=== PATIENT | male | born 1965 | race Caucasian/White ===

== ENCOUNTER 2024-09-29 11:17 | Observation (INO) ==
[2024-09-29] MEDS: ONDANSETRON INJ 2 MG/ML 2 ML VIAL IV STA (11:46)
[2024-09-29] MEDS: SODIUM CHLORIDE 0.9% 1,000 ML IV ONE (11:46)
[2024-09-29] MEDS: MoRPHine SULFATE 4 MG/ML 1 ML CARP\\VIAL IV STA (11:46)
[2024-09-29 12:05] LABS: Basophils # (auto) 0.03 K/uL (0.00-0.20); Basophils % (auto) 0.2 %; Eosinophils # (auto) 0.01 K/uL (0.00-0.50); Eosinophils % (auto) 0.1 %; Hematocrit (blood only) 39.7 % (42.0-52.0); Hemoglobin 13.1 g/dl (14.0-18.0); Immature Granulocytes # (auto) 0.06 K/uL (0.01-0.20); Immature Granulocytes % (auto) 0.4 %; Lymphocytes # (auto) 1.31 K/uL (1.20-3.40); Lymphocytes % (auto) 8.6 %; Mean Corpuscular Hemoglobin 29.2 pg (25.0-34.0); Mean Corpuscular Volume 88.6 fL (80.0-100.0); Mean Platelet Volume 11.9 fL (9.4-12.4); Monocytes # (auto) 1.01 K/uL (0.11-0.59); Monocytes % (auto) 6.6 %; Neutrophils # (auto) 12.85 K/uL (1.40-6.50); Neutrophils % (auto) 84.1 %; Platelet Count 219 K/uL (130-400); RDW Coefficient of Variation 13.1 % (11.5-14.5); RDW Standard Deviation 42.6 fL (36.4-46.3); Red Blood Count 4.48 M/uL (4.70-6.10); White Blood Count 15.27 K/ul (4.8-10.8)
--- NOTE | 2024-09-29 12:14 | Emergency Department Note ---
Impression & Plan Calculus of right ureter, Hydronephrosis ED Provider Note HISTORY OF PRESENT ILLNESS: Patient is a 59-year-old male presenting with an obstructing right sided kidney stone. Patient had presented to an outside emergency department 3 days ago. He was diagnosed with an obstructing 7 mm right kidney stone. He was discharged with pain and nausea medications and had a follow-up with urology today. At his urology visit, he was complaining of significant worsening pain and having persistent nausea. He was referred to the emergency department for symptomatic management and plan for stent placement with urology. On arrival to the ER, the patient reports that he actually went to the outside ER earlier today for his continued symptoms but was able to get in with urology and went to that visit after his ER visit. He is not currently on any antibiotics. He denies any measured fevers but reports he broke out in sweats and had some chills last night. He reports vomiting earlier today but is currently complaining of nausea. He locates the pain to the right lower quadrant. He denies any history of abdominal surgeries. Denies any dysuria or hematuria. He reports that he had kidney stones that were surgically intervened on on the left side about 15 years ago. ROS: as above PHYSICAL EXAM: Constitutional: Patient appears in no acute distress. HENT: Head: Normocephalic and atraumatic. Eyes: EOMI, PERRL Mouth/Throat: Mucous membranes moist. Neck: Trachea midline. Neck supple. Cardiovascular: RRR, No murmurs, rubs or gallops. Intact distal pulses. Pulmonary/Chest: No respiratory distress. Breath sounds clear and equal bilaterally. No wheezes or rales. Abdominal: Abdomen soft, no rebound or guarding. RLQ TTP Musculoskeletal: No edema, tenderness or deformity noted. Skin: Warm and dry. No rash, erythema, pallor or cyanosis Psychiatric: Appropriate mood and affect for situation. Neurological: Alert and keenly responsive. CN II-XII grossly intact, moving all extremities equally and fully. MDM: - Vitals signs showed hypertension - History obtained via patient. History as above. - Chronic conditions affecting care: HTN; HLD - Differential diagnoses include, but are not limited to: UTI; pyelonephritis; hydronephrosis; ureteral stone; appendicitis - Order placed for continuous cardiac monitoring. At this time, monitor showed rate of 50 bpm with normal sinus rhythm, per my interpretation. - External medical records reviewed. Urology visit note from today was reviewed. Based on their note, the CT abdomen/pelvis obtained at the outside ER on 09/27 showed a "moderate right-sided hydroureter ureter nephrosis secondary to an obstructing 7 Zelaya right ureteral calculus." - Laboratory workup interpreted by myself showed leukocytosis (WBC 15.27) with neutrophil predominance; elevated creatinine (Cr 2.06); normal AST/ALT; normal lipase - Patient given 1L NS, 4 mg IV morphine and 4 mg IV zofran for symptomatic management. Given 2g IV rocephin empirically for treatment before surgery. - Discussed case with urologist SEGUNDO on-call, Raquel, at 11:45 am. She is working with Dr. Boothe. He plans to come and evaluate the patient. Patient's last p.o. intake was a sip of water at 6:30 AM. Otherwise he is NPO. Reports that given his n.p.o. status, they will work on putting the patient on the OR schedule and placing a stent later today. She requested that medicine be consulted for admission postoperatively. - Discussion was had with wrapper caser about patient's case and need for admission - Hospitalist consulted for admission - [facility] ASSESSMENT AND PLAN: Diagnosis: Obstructing right ureteral stone; hydronephrosis Plan: Admit Past Med/Surg History Problem List (Updated 09/29/24 @ 12:19 by Vidhya Ewing MD) Hydronephrosis (Acute) Calculus of right ureter (Acute) Calculus of proximal right ureter Medical History Gout Hypertension Surgical History H/O lithotripsy Social History Smoking Status: Never smoker Feels Safe at Home: Yes Allergies Allergies Allergy/AdvReac Type Severity Reaction Status Date / Time No Known Allergies Allergy Verified 09/29/24 10:26 Home Meds Home Medications Medication Instructions Recorded Confirmed atenolol 25 mg tablet 25 mg PO DAILY 09/29/24 09/29/24 losartan 25 mg tablet 25 mg PO DAILY 09/29/24 09/29/24 simvastatin 5 mg tablet 5 mg PO DAILY 09/29/24 09/29/24 tamsulosin 0.4 mg capsule (Flomax) 0.4 mg PO DAILY 09/29/24 09/29/24 Results & Data (ED) Vital Signs Vital Signs - 24 hr 09/29/24 11:31 09/29/24 11:53 09/29/24 12:31 Temperature 36.4 C L Temperature Source Oral Pulse Rate 56 L 48 L Pulse Rate [Right Finger] 49 L Pulse Rhythm [Right Finger] Regular Pulse Strength [Right Finger] Normal Respiratory Rate 16 16 Respiratory Effort / Characteristics Non-Labored Spontaneous Non-Labored Spontaneous Respiratory Depth Normal Normal Respiratory Pattern Regular Blood Pressure 137/75 Blood Pressure [Right Arm] 138/76 Blood Pressure Mean 95 Blood Pressure Mean [Right Arm] 96 Blood Pressure Position [Right Arm] Lying Pulse Oximetry 100 98 Oxygen Delivery Method Room Air Room Air Sepsis Recent Fever Within 48 Hours No Sepsis New/Unexplained Change in Mental Status No Sepsis Action Taken by Nursing No Action Required Laboratory Data 09/29/24 11:40 09/29/24 11:40 Lab Results 09/29/24 Range/Units 11:40 WBC 15.27 H (4.8-10.8) K/ul RBC 4.48 L (4.70-6.10) M/uL Hgb 13.1 L (14.0-18.0) g/dl Hct 39.7 L (42.0-52.0) % MCV 88.6 (80.0-100.0) fL MCH 29.2 (25.0-34.0) pg MCHC 33.0 (32.0-36.0) g/dL RDW Std Deviation 42.6 (36.4-46.3) fL RDW Coeff of Damaso 13.1 (11.5-14.5) % Plt Count 219 (130-400) K/uL MPV 11.9 (9.4-12.4) fL Immature Gran % (Auto) 0.4 % Neut % (Auto) 84.1 % Lymph % (Auto) 8.6 % Davis % (Auto) 6.6 % Eos % (Auto) 0.1 % Baso % (Auto) 0.2 % Neut # (Auto) 12.85 H (1.40-6.50) K/uL Lymph # (Auto) 1.31 (1.20-3.40) K/uL Davis # (Auto) 1.01 H (0.11-0.59) K/uL Eos # (Auto) 0.01 (0.00-0.50) K/uL Baso # (Auto) 0.03 (0.00-0.20) K/uL Immature Gran # (Auto) 0.06 (0.01-0.20) K/uL Sodium 138 (136-145) mmol/L Potassium 4.3 (3.5-5.1) mmol/L Chloride 105 (98-107) mmol/L Carbon Dioxide 26 (21-32) mmol/L Anion Gap 7 (3-11) BUN 31 H (6-23) mg/dl Creatinine 2.06 H (0.6-1.4) mg/dl Est Cr Clr Drug Dosing 47.2 ml/min eGFR 36.20 BUN/Creatinine Ratio 15.0 (10-20) Glucose 133 H (70-99(Fasting)) mg/dl Calcium 9.5 (8.6-10.3) mg/dl Total Bilirubin 0.7 (0.2-1.0) mg/dl AST 16 (13-39) U/L ALT 17 (7-52) U/L Alkaline Phosphatase 56 (34-104) U/L Total Protein 7.4 (6.0-8.3) gm/dl Albumin 4.1 (3.4-5.0) gm/dl Globulin 3.3 (2.5-4.0) gm/dl Albumin/Globulin Ratio 1.2 (0.9-2) Lipase 13 (11-82) U/L Administered Medications Sodium Chloride (Nss) 1,000 mls @ 999 mls/hr IV .Q1H1M ONE Stop: 09/29/24 12:39 Last Admin: 09/29/24 11:46 Dose: 999 mls/hr Documented By: FREDI Discontinued Medications Morphine Sulfate (Morphine Sulfate 4 Mg/Ml 1 Ml Carp\\Vial) 4 mg IV NOW STA Stop: 09/29/24 11:40 Last Admin: 09/29/24 11:46 Dose: 4 mg Documented By: FREDI Ondansetron HCl (Ondansetron Inj 2 Mg/Ml 2 Ml Vial) 4 mg IV NOW STA Stop: 09/29/24 11:40 Last Admin: 09/29/24 11:46 Dose: 4 mg Documented By: FREDI Discharge Plan Visit Data Chief Complaint: Referred by Doctor Stated Complaint: KIDNEY STONE,DOC REF ED Provider: Vidhya Ewing Discharge Problem: Calculus of right ureter, Hydronephrosis Condition: Fair Forms Stand Alone Forms: My [facility] Prescriptions Prescriptions: No Action atenolol 25 mg tablet 25 mg PO DAILY losartan 25 mg tablet 25 mg PO DAILY simvastatin 5 mg tablet 5 mg PO DAILY tamsulosin [Flomax] 0.4 mg capsule 0.4 mg PO DAILY Referrals Referrals: Tanya Becerril DO [Primary Care Provider] -
[2024-09-29 12:24] LABS: Albumin Globulin Ratio 1.2 (0.9-2); Bilirubin,Total 0.7 mg/dl (0.2-1.0); Calcium 9.5 mg/dl (8.6-10.3); Creatinine Clr Calc Pharmacy 47.2 ml/min; Globulin 3.3 gm/dl (2.5-4.0); Potassium 4.3 mmol/L (3.5-5.1); Total Protein 7.4 gm/dl (6.0-8.3)
[2024-09-29] MEDS ORDERED: ONDANSETRON INJ 2 MG/ML 2 ML VIAL IV PRN (12:45)
[2024-09-29] MEDS ORDERED: PROCHLORPERAZINE 5 MG in SYRINGE 4 ML IV PRN (12:45)
[2024-09-29] MEDS ORDERED: MoRPHine SULFATE 2 MG/ML CARP IV PRN (12:45)
[2024-09-29] MEDS ORDERED: MoRPHine SULFATE 4 MG/ML 1 ML CARP\\VIAL IV PRN (12:45)
[2024-09-29] MEDS: cefTRIAXone SODIUM 2,000 MG/50 ML BAG IV STA (12:47)
--- NOTE | 2024-09-29 12:58 | History & Physical Report ---
Date of Service September 29, 2024 Assessment & Plan (1) Calculus of right ureter: (2) Hydronephrosis: Plan This is a 59 year old gentleman with past medical history of hypertension and hyperlipidemia who presented to the ED on 09/29/24 after referred by urology. While in the emergency department he was found to have leukocytosis with a WBC of 15.27. His creatinine was elevated at 2.06 and BUN elevated at 31. No imaging obtained. Urine culture is pending. He was given morphine, Rocephin, Zofran. Upon my encounter his pain was starting to return. #Calculus of proximal right ureter CTAP 09/27moderate right-sided hydroureteronephrosis secondary to obstructing 7 mm right ureteral calculus CBC with leukocytosis of 15.27, hemoglobin stable at 13.1. BMP with elevated creatinine 2.06/BUN 31secondary to obstructing stone S/p IV morphine, Zofran, Rocephin in ED Continue IV morphine for pain medication Zofran first-line, Compazine second line for antiemetics IV fluids at 125 mL/h Urology consulteddiscussed at bedside that he will go for cystoscopy later today Remain NPO until after procedure. Urine sample pending AM CBC, BMP #Hypertension Continue atenolol Hold losartan in setting of NORA #Hyperlipidemia Continue simvastatin DVT prophylaxis: SCDs, encourage ambulation Code: Full Case discussed with Dr. Pascual at time of admission History of Present Illness Primary Care Provider: Tanya Becerril This is a 59 year old gentleman with past medical history of hypertension and hyperlipidemia who presented to the ED on 09/29/24 after referred by urology. Mina was seen and examined w/ his at bedside. Mina went to [facility] ER on 09/27 and was found to have Is obstructing 7 mm right proximal ureteral stone. He was discharged home with antiemetics and pain medication however his symptoms are uncontrolled. He then reported to the ED earlier this morning at [facility] with similar recommendations. He was evaluated in our urology office following this. At that time it was recommended that he report to the ER given that his symptoms are uncontrolled for a cystoscopy. Work reports that he has been having ongoing right flank/right lower quadrant abdominal pain since this started on 09/27. He states that he was given Percocet to use at home however every single time he took this he then vomited shortly after. He is unsure whether the Percocet was even helping. He also reports that the antiemetics were not effective in controlling his symptoms. He reports a decreased appetit e. Denies any chest pain, shortness of breath, lower extremity edema. He states he has been able to make urine and denies any urgency/burning. Denies any changes in bowel habits. While in the emergency department he was found to have leukocytosis with a WBC of 15.27. His creatinine was elevated at 2.06 and BUN elevated at 31. No imaging obtained. Urine culture is pending. He was given morphine, Rocephin, Zofran. Upon my encounter his pain was starting to return. Code discussion to take place and he did confirm he is a full code Allergies Allergy/AdvReac Type Severity Reaction Status Date / Time No Known Allergies Allergy Verified 09/29/24 10:26 Home Medications Medication Instructions Recorded Confirmed Type atenolol 25 mg tablet 25 mg PO DAILY 09/29/24 09/29/24 History etodolac 200 mg capsule 200 mg PO Q6H 09/29/24 09/29/24 History losartan 100 1 tab PO DAILY 09/29/24 09/29/24 History mg-hydrochlorothiazide 25 mg tablet ondansetron 4 mg disintegrating 4 mg PO TID PRN Nausea And Vomiting 09/29/24 09/29/24 History tablet simvastatin 5 mg tablet 5 mg PO DAILY 09/29/24 09/29/24 History tamsulosin 0.4 mg capsule (Flomax) 0.4 mg PO DAILY 09/29/24 09/29/24 History Past Med/Surg History Problem List (Updated 09/29/24 @ 13:32 by Aaron Mcgee MD) Encounter for pre-operative examination Renal colic Calculus of right ureter (Acute) Calculus of proximal right ureter Medical History (Updated 09/29/24 @ 13:32 by Aaron Mcgee MD) Acute kidney injury Hydronephrosis Gout Hypertension Surgical History H/O lithotripsy Social History Smoking Status: Never smoker Hx Alcohol Use: Yes Alcohol type: beer Hx Substance Use: No Communication Ability: Effective Current Living Situation: Spouse Feels Safe at Home: Yes Assistive Devices: Glasses and Hospital Bed Physical Exam Physical Exam: General: no acute distress; non-toxic appearing; well-nourished; cooperative HEENT: normocephalic, atraumatic; no scleral icterus; PERRLA w/ EOMs intact; vision and hearing grossly intact Neck: trachea midline Skin: warm, dry without signs of tenting; no cyanosis; no rashes, bruising, lesions, or erythema noted CV: RRR; S1/S2 normal; no murmurs/rubs/gallops Lungs: no acute respiratory distress; symmetrical chest wall expansion; clear breath sounds across all lung quintero w/o adventitious sounds; no wheezing ABD: Soft, NTP; BS present;+RLQ tenderness; no distention MSK: no tics or fasciculations; no edema noted in the LEs b/l, nonerythematous Neuro: A&Ox3; normal mood and affect; fluent speech; no focal deficits; sensation grossly intact in the LEs b/l Results & Data Results & Data Vital Signs (Past 12 Hours) Vital Signs Temp Pulse Pulse Resp BP BP Pulse Ox 09/29/24 12:31 48 L 09/29/24 11:53 49 L 16 138/76 98 09/29/24 11:31 36.4 C L 56 L 16 137/75 100 O2 Del Method 09/29/24 12:31 09/29/24 11:53 Room Air 09/29/24 11:31 Room Air Supervising Physician Co-Signing Physician Notes I personally saw and examined the patient. I independently reviewed the labs, EKG, imaging, problem list, medication list, past medical history and family history. I verified all arellano points and agree with Rebeca Lazo PA-C with the following exceptions and/or additions: 59 year old male presents to the ER with known ureterolithiasis and uncontrolled pain O/E HS RRR, no murmurs, Chest CTAB, Abdo SNT, no CVA tenderness A/P Ureterolithiasis - doing well s/p ureteral stent, monitor overnight and repeat labs in AM, likely discharge tomorrow and follow up with urology as outpatient Elevated Cr - patient thinks this maybe chronic therefore do not expect to significantly improve overnight PG Care Time/CCT Total # of Minutes Spent Total Time Spent with Patient: Total time spent is greater than 50% in coordination of care (as documented) at patient's floor/unit and/or counseling patient: Coding Level of Care Code 67232 INT INP/OBS CARE 3/75MIN Diagnoses Calculus of right ureter N20.1 Hydronephrosis N13.30
--- NOTE | 2024-09-29 13:04 | Urology Consultation ---
Date of Consultation September 29, 2024 Assessment & Plan (1) Calculus of right ureter: (2) Hydronephrosis: (3) Renal colic: Plan 59yo male admitted with intractable pain secondary to an obstructing 7 mm right ureteral stone We discussed acute stone management with cystoscopy and stent placement. Ureteral stents were discussed as well as postoperative issues and pain management. He is aware a second procedure will be needed for stone treatment. Risks and benefits were discussed. All questions were answered. Will proceed to OR today for cystoscopy, right retrograde pyelogram, right ureteral stent placement. Risks and benefits to be reviewed with patient by Dr. Boothe. Keep NPO. Patient received IV Rocephin in the ED. Urology will follow. Supervising Physician Co-Signing Physician Notes Will plan for cystoscopy, right retrograde pyelogram and right ureteral stent placement due to intractable pain and right obstructing ureteral calculus. History of Present Illness History of Present Illness 59 year old male who presented to the ED today with an obstructing right ureteral stone. Patient was initially evaluated at [facility] ED on 09/27 for acute right flank pain and was diagnosed with an obstructing 7 mm right proximal ureteral stone. CTAP demonstrated moderate right sided hydroureteronephrosis secondary to an obstructing 7 mm right ureteral calculus. He was discharged with pain and nausea medication. Pt returned to [facility] ED this morning 09/29 for ongoing pain, nausea and vomiting. He was treated with pain and nausea medication and discharged for follow-up with urology. Was then seen in the urology clinic this morning and continued to have significant discomfort and ongoing nausea/vomiting despite medications and was directed to the ED at that time. On arrival to the ED today, he was afebrile and hemodynamically stable. Labs show a leukocytosis of 15 and creatinine of 2.06. ED course: IV fluids, Zofran, morphine, fentanyl, Rocephin Pt seen at bedside in the ED. He is awake and resting in bed on arrival. No acute distress. at bedside. Has been NPO. Allergies Allergy/AdvReac Type Severity Reaction Status Date / Time No Known Allergies Allergy Verified 09/29/24 10:26 Home Medications Medication Instructions Recorded Confirmed Type atenolol 25 mg tablet 25 mg PO DAILY 09/29/24 09/29/24 History etodolac 200 mg capsule 200 mg PO Q6H 09/29/24 09/29/24 History losartan 100 1 tab PO DAILY 09/29/24 09/29/24 History mg-hydrochlorothiazide 25 mg tablet ondansetron 4 mg disintegrating 4 mg PO TID PRN Nausea And Vomiting 09/29/24 09/29/24 History tablet simvastatin 5 mg tablet 5 mg PO DAILY 09/29/24 09/29/24 History tamsulosin 0.4 mg capsule (Flomax) 0.4 mg PO DAILY 09/29/24 09/29/24 History Patient History Medical History (Updated 09/29/24 @ 13:32 by Aaron Mcgee MD) Acute kidney injury Hydronephrosis Gout Hypertension Surgical History H/O lithotripsy Social History Smoking Status: Never smoker Feels Safe at Home: Yes Review of Systems Review of Systems: All systems reviewed & are unremarkable except as noted in HPI & below Physical Exam Constitutional: no acute distress Respiratory: no respiratory distress and no labored breathing Musculoskeletal: Head/Neck/Chest: normocephalic Skin: No visible rashes or lesions to exposed skin areas Neurologic: moves all extremities and awake Psychiatric: A+Ox3, euthymic affect Results & Data Vital Signs (Past 12 Hours) Vital Signs Temp Pulse Pulse Resp BP BP Pulse Ox 09/29/24 12:31 48 L 09/29/24 11:53 49 L 16 138/76 98 09/29/24 11:31 36.4 C L 56 L 16 137/75 100 O2 Del Method 09/29/24 12:31 09/29/24 11:53 Room Air 09/29/24 11:31 Room Air PG Care Time/CCT Total # of Minutes Spent Total Time Spent with Patient: Total time spent is greater than 50% in coordination of care (as documented) at patient's floor/unit and/or counseling patient: Coding Level of Care Code 93602 IN/OBS CONSULT LVL 4,60M Diagnoses Calculus of right ureter N20.1 Hydronephrosis N13.30 Renal colic N23
[2024-09-29] MEDS: fentaNYL citrate PF 100 MCG/2 ML VIAL IV STA (13:28)
--- NOTE | 2024-09-29 13:33 | Anesthesiology Consultation ---
Date of Service September 29, 2024 Assessment & Plan (1) Encounter for pre-operative examination: Chart Review Chart Review: Acceptable Risk for Surgery History Surgery Operation Date: 09/29/24 12:25 Proposed Procedures p Cystoscopy, Right Retrograde Pyelogram, Right Stent Placement - Dani Boothe MD Height/Weight Height: 5 ft 10 in Weight: 109.1 kg Allergies Allergy/AdvReac Type Severity Reaction Status Date / Time No Known Allergies Allergy Verified 09/29/24 10:26 Medications Home Medications Medication Instructions Recorded Confirmed Last Taken atenolol 25 mg tablet 25 mg PO DAILY 09/29/24 09/29/24 Unknown etodolac 200 mg capsule 200 mg PO Q6H 09/29/24 09/29/24 Unknown losartan 100 1 tab PO DAILY 09/29/24 09/29/24 Unknown mg-hydrochlorothiazide 25 mg tablet ondansetron 4 mg disintegrating 4 mg PO TID PRN Nausea And Vomiting 09/29/24 09/29/24 Unknown tablet simvastatin 5 mg tablet 5 mg PO DAILY 09/29/24 09/29/24 Unknown tamsulosin 0.4 mg capsule (Flomax) 0.4 mg PO DAILY 09/29/24 09/29/24 Unknown Past Medical History Medical History (Updated 09/29/24 @ 13:32 by Aaron Mcgee MD) Acute kidney injury Hydronephrosis Gout Hypertension Past Surgical History Surgical History H/O lithotripsy Social History Smoking Status: Never smoker Physical Exam Vital Signs Last Vital Signs Temp 36.4 C L 09/29/24 11:31 Pulse 48 L 09/29/24 12:31 Resp 16 09/29/24 11:53 BP 138/76 09/29/24 11:53 Pulse Ox 98 09/29/24 11:53 O2 Del Method Room Air 09/29/24 11:53 Testing Laboratory Results 09/29/24 11:40 09/29/24 11:40
[2024-09-29] MEDS ORDERED: ONDANSETRON INJ 2 MG/ML 2 ML VIAL ONE (13:47)
[2024-09-29] MEDS ORDERED: MIDAZOLAM HCL 1 MG/ML 2ML VIAL ONE (13:47)
[2024-09-29] MEDS ORDERED: DEXAMETHASONE SOD INJ 4 MG/ML VIAL ONE (13:47)
[2024-09-29] MEDS ORDERED: LIDOCAINE 2% 2 ML VIAL/AMP(20MG/ML) INFIL ONE (13:47)
[2024-09-29] MEDS ORDERED: fentaNYL citrate PF 100 MCG/2 ML VIAL ONE (13:47)
[2024-09-29] MEDS ORDERED: PROPOFOL IV EMULSION 10 MG/ML 20 ML VIAL IV ONE ×2 (13:47→13:53)
[2024-09-29] MEDS ORDERED: GLYCOPYRROLATE 0.2 MG/ML VIAL ONE (13:49)
[2024-09-29] MEDS: LACTATED RINGER'S 1,000 ML IV SCH (14:03)
[2024-09-29] MEDS ORDERED: PROMETHAZINE HCL 6.25 MG in SODIUM CHLORIDE 0.9% 50 ML IV PRN (14:18)
[2024-09-29] MEDS ORDERED: ATROPINE SULFATE 0.1 MG/ML 10ML SYR IV PRN (14:18)
[2024-09-29] MEDS ORDERED: fentaNYL citrate PF 100 MCG/2 ML VIAL IV PRN (14:18)
[2024-09-29] MEDS ORDERED: KETAMINE HCL 10MG/ML SYR ONE (14:29)
[2024-09-29] MEDS: DIATRIZOATE MEGLUMINE 30% 100ML VIAL INSTIL PRN (14:44)
--- NOTE | 2024-09-29 14:48 | Operative Report ---
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 Stent in appropriate position at renal pelvis. Specimens None Drains 6 Bahamian by 26 cm right ureteral stent Anesthesia Type MAC Complications none Indications 59-year-old male with a right proximal obstructing ureteral calculus and intractable pain. Description of Procedure After informed consent was obtained, the patient was transported operative suite. MAC anesthesia was induced. The patient was placed in dorsolithotomy position prepped and draped in a sterile fashion. They received preoperative Ancef for antibiotic prophylaxis. An appropriate surgical timeout was performed. A 22 Bahamian rigid scope was inserted per urethra into the bladder. Freedman cystoscopy revealed no stones or lesions. I turned my attention the right ureteral orifice and intubated this with a 5 Bahamian open-ended catheter. A right retrograde pyelogram was shot which showed mild hydronephrosis and a bifid system. A sensor wire was advanced into the kidney and confirmed fluoroscopically. A 6 Bahamian by 26 cm right ureteral stent was deployed with a good proximal coil in the renal pelvis just below the bifid system and a good distal coil noted in the bladder, confirmed fluoroscopically and under direct visualization, respectively. The bladder was emptied and the scope was removed. This concluded the end of the case. All counts were correct at the end of the case. I was present, scrubbed, and actively participated for the entirety of the procedure. I attest to the content of the Intraoperative Record and any orders documented therein. Any exceptions are noted below.
--- NOTE | 2024-09-29 14:58 | Fluoroscopy Report ---
FL retrograde includes kub CLINICAL HISTORY: CYSTO COMPARISON STUDY: None FLUOROSCOPY TIME: 12 seconds FLUOROSCOPY IMAGES: 2 EXPOSURE DOSE: 6 mGy FINDINGS: Fluoroscopy was provided for urologic procedure. IMPRESSION: Intraoperative fluoroscopy. ACT 112: Negative or not required by law. Electronically signed by: Juancho Salazar M.D. 09/29/2024 2:57 PM
--- NOTE | 2024-09-29 15:24 | Anesthesiology Progress Note ---
Date of Service September 29, 2024 Anesthesia Post Procedure Vital Signs Vital Signs: Temp Pulse Pulse Pulse Resp BP BP 09/29/24 15:20 59 L 12 114/69 09/29/24 15:10 36.2 C L 60 19 115/70 09/29/24 15:00 60 13 110/72 09/29/24 14:51 36.1 C L 68 14 119/70 09/29/24 13:58 37.1 C 56 L 20 09/29/24 13:30 59 L 16 09/29/24 12:31 48 L 09/29/24 11:53 49 L 16 09/29/24 11:31 36.4 C L 56 L 16 137/75 BP Pulse Ox O2 Del Method O2 Flow Rate 09/29/24 15:20 95 Room Air 09/29/24 15:10 95 Room Air 09/29/24 15:00 99 Oxymask 3 09/29/24 14:51 99 Oxymask 10 09/29/24 13:58 120/66 99 Room Air 09/29/24 13:30 127/70 98 Room Air 09/29/24 12:31 09/29/24 11:53 138/76 98 Room Air 09/29/24 11:31 100 Room Air Pain Intensity Abdomen: Pain Intensity: 7 Transfer of Care Handoff Completed per policy Notes Mental Status: alert / awake / arousable Patient Amnestic to Procedure: Yes Nausea / Vomiting: adequately controlled Pain: adequately controlled Airway Patency, RR, SpO2: stable & adequate BP & HR: stable & adequate Hydration State: stable & adequate Anesthetic Complications: no major complications apparent
[2024-09-29] MEDS: SODIUM CHLORIDE 0.9% 1,000 ML IV SCH (16:34)
[2024-09-29] MEDS: TAMSULOSIN HCL 0.4 MG CAP PO SCH (20:35)
[2024-09-29] MEDS ORDERED: TAMSULOSIN HCL 0.4 MG CAP PO SCH (21:00)
[2024-09-30 07:15] VITALS: RESP 16; TEMP 97.5
[2024-09-30 07:57] LABS: Hematocrit (blood only) 34.8 % (42.0-52.0); Hemoglobin 11.6 g/dl (14.0-18.0); Mean Corpuscular Hemoglobin 29.8 pg (25.0-34.0); Mean Corpuscular Hgb Conc 33.3 g/dL (32.0-36.0); Mean Corpuscular Volume 89.5 fL (80.0-100.0); Mean Platelet Volume 12.7 fL (9.4-12.4); Platelet Count 181 K/uL (130-400); RDW Coefficient of Variation 13.1 % (11.5-14.5); RDW Standard Deviation 42.8 fL (36.4-46.3); Red Blood Count 3.89 M/uL (4.70-6.10); White Blood Count 10.65 K/ul (4.8-10.8)
[2024-09-30 08:32] LABS: Calcium 8.9 mg/dl (8.6-10.3); Potassium 4.4 mmol/L (3.5-5.1)
[2024-09-30 08:37] VITALS: O2SAT 96
[2024-09-30] MEDS: SIMVASTATIN 5 MG TAB PO SCH (08:37)
[2024-09-30 08:38] LABS: BUN Creatinine Ratio 16.3 (10-20); Creatinine Clr Calc Pharmacy 61.5 ml/min
--- NOTE | 2024-09-30 09:57 | Discharge Summary ---
Discharge Summary Date of Service September 30, 2024 Principal Dx & Hospital Course #1 = Principal Diagnosis (1) Calculus of right ureter: (2) Hydronephrosis: Plan This is a 59 year old gentleman with past medical history of hypertension and hyperlipidemia who presented to the ED on 09/29/24 after referred by urology. #Calculus of proximal right ureter CTAP 09/27moderate right-sided hydroureteronephrosis secondary to obstructing 7 mm right ureteral calculus leukocytosis resolved. Creatinine downtrending to 1.60. s/p cystoscopy 09/29 w/ stent placement. No urine sample collected --> s/p 1 dose Rocephin. dc home on Keflex TID for additional 5 days for prophylaxis treatment. Discussed w/ urology. Continue Flomax Was not requiring narcotics requiring stent placement --> recommend tylenol prn for pain @ home. #Hypertension Continue atenolol resume Losartan on discharge. #Hyperlipidemia Continue simvastatin Admission HPI Per Admitting Provider This is a 59 year old gentleman with past medical history of hypertension and hyperlipidemia who presented to the ED on 09/29/24 after referred by urology. Mina was seen and examined w/ his at bedside. Mina went to [facility] ER on 09/27 and was found to have Is obstructing 7 mm right proximal ureteral stone. He was discharged home with antiemetics and pain medication however his symptoms are uncontrolled. He then reported to the ED earlier this morning at [facility] with similar recommendations. He was evaluated in our urology office following this. At that time it was recommended that he report to the ER given that his symptoms are uncontrolled for a cystoscopy. Work reports that he has been having ongoing right flank/right lower quadrant abdominal pain since this started on 09/27. He states that he was given Percocet to use at home however every single time he took this he then vomited shortly after. He is unsure whether the Percocet was even helping. He also reports that the antiemetics were not effective in controlling his symptoms. He reports a decreased appetite. Denies any chest pain, shortness of breath, lower extremity edema. He states he has been able to make urine and denies any urgency/burning. Denies any changes in bowel habits. While in the emergency department he was found to have leukocytosis with a WBC of 15.27. His creatinine was elevated at 2.06 and BUN elevated at 31. No imaging obtained. Urine culture is pending. He was given morphine, Rocephin, Zofran. Upon my encounter his pain was starting to return. Code discussion to take place and he did confirm he is a full code Discharge Exam General: no acute distress; non-toxic appearing; well-nourished; cooperative HEENT: normocephalic, atraumatic; no scleral icterus; PERRLA w/ EOMs intact; vision and hearing grossly intact Neck trachea midline Skin: warm, dry without signs of tenting; no cyanosis; no rashes, bruising, lesions, or erythema noted Lungs: no acute respiratory distress; symmetrical chest wall expansion MSK: no edema noted in the LEs b/l, nonerythematous Neuro: A&Ox3; normal mood and affect; fluent speech; no focal deficits Discharge Plan Discharge Items Patient Disposition: Home - Self-Care Reason For Visit: KIDNEY STONE Discharge Diagnosis: renal calculus Condition on Discharge: Fair Activity: Resume your previous activity Non-emergency contact: Primary Care Provider and Urologist Call non-emergency contact if: you have any medication questions, your symptoms worsen and you have a fever Follow-up/Referrals: Rupinder Coleman CRNP [Nurse Practitioner] - 10/11/24 10:00 am Tanya Becerril DO [Primary Care Provider] - 10/06/24 10:00 am Diet: Regular Addtl Attending Provider Instructions: Mr. Martínez, Rudolph were recently hospitalized for a kidney stone and underwent a cystoscopy with Dr. Boothe on 09/29/2024 for a stent placement. You were also given antibiotics as well. Please see recommendations below regarding your discharge. Please take Keflex three times daily for the next 5 days. Please take this with food to avoid GI upset. Urology will be in contact to schedule further appointments for you. The remainder of your medications may be resumed. Please follow up with your PCP within 1-2 weeks of discharge. Best of luck! Rebeca Lazo PA-C Pending Studies at Discharge: No Stand-Alone Forms: My [employer], Smoking Cessation Medications and DC Order Prescriptions: New cephalexin 500 mg capsule 500 mg PO TID 5 Days Qty: 15 0RF Continued atenolol 25 mg tablet 25 mg PO DAILY simvastatin 5 mg tablet 5 mg PO DAILY Rx Instructions: Pt states taking, but not on file w/ pharmacy. tamsulosin [Flomax] 0.4 mg capsule 0.4 mg PO DAILY etodolac 200 mg capsule 200 mg PO Q6H losartan-hydrochlorothiazide 100-25 mg tablet 1 tab PO DAILY ondansetron 4 mg tablet,disintegrating 4 mg PO TID PRN (Reason: Nausea And Vomiting) Discharge Orders: Discharge Order (Routine); Ordered 09/30/24 Ordered By: Rebeca Fung/Other Patient Handouts: Having a Ureteral Stent Admission Data Admit Date/Time: 09/29/24 13:55 Attending Provider: Alek Steiner Admit Provider: Michael Pascual Primary Care Provider: Tanya Becerril Other Providers: Dani Boothe; Michael Pascual Other Interventions: Discharge Summary Assessment (RN) Last Done: 09/30/24 10:56 Hospital Stay Data Consultations 09/29/24 12:15 Consult Urology Stat ED Decision to Admit Stat Procedures Performed Operation Date: 09/29/24 12:25 Actual Procedures p Cystoscopy, Right Retrograde Pyelogram, Right Stent Placement(Right) - Dani Boothe MD Diagnostic Imagining Performed 09/29/24 13:00 FL retrograde includes kub Routine Pending Results Patient Have Any Pending Studies at Discharge: No Discharge Instructions Given to Patient (Per Discharging Provider) Mr. Martínez, Rudolph were recently hospitalized for a kidney stone and underwent a cystoscopy with Dr. Boothe on 09/29/2024 for a stent placement. You were also given antibiotics as well. Please see recommendations below regarding your discharge. Please take Keflex three times daily for the next 5 days. Please take this with food to avoid GI upset. Urology will be in contact to schedule further appointments for you. The remainder of your medications may be resumed. Please follow up with your PCP within 1-2 weeks of discharge. Best of luck! Rebeca Lazo PA-C Total Time Total Time Spent Total Time Spent (In Minutes): 40 Total Time Includes: Examination of the Patient, Discharge Planning, Medication Reconciliation and Communication With Other Providers Coding Level of Care Code 78510 INP/OBS DISCH >30 MIN Diagnoses Calculus of right ureter N20.1 Hydronephrosis N13.30
[2024-09-30 10:21] VITALS: BP 124/74; PULSE 59
--- NOTE | 2024-09-30 10:22 | Urology Progress Note ---
Date of Service September 30, 2024 Assessment & Plan (1) Calculus of right ureter: (2) Renal colic: Plan POD#1 s/p cystoscopy and right stent placement Feeling well, tolerating the stent with minimal bother Afebrile and hemodynamically stable Labs today show leukocytosis resolved, creatinine improved 2.06-1.60 OK for discharge from perspective Will arrange outpatient follow-up to discuss definitive stone treatment Can discharge with short course of antibiotics as precaution since there is no culture data available Urology will sign off, please call with any question/concerns Admission and Anticipated Discharge Date Admission Date: September 29, 2024 Subjective Pt seen at bedside today Awake and resting bed on arrival No acute distress Reports he is feeling better overall Denies any significant pain or discomfort No fevers, chills, nausea, vomiting Voiding without issue Review of Systems Constitutional: as per Subjective / HPI Genitourinary: + as per Subjective / HPI Physical Exam Constitutional: no acute distress Respiratory: no respiratory distress and no labored breathing Skin: No visible rashes or lesions to exposed skin areas Neurologic: moves all extremities and awake Psychiatric: A+Ox3, euthymic affect Results & Data Vital Signs (Past 12 Hours) Vital Signs Temp Pulse Resp BP BP Pulse Ox O2 Del Method 09/30/24 08:36 55 L 121/67 96 Room Air 09/30/24 07:15 36.4 C L 58 L 16 133/71 95 Room Air 09/30/24 04:12 37.1 C 50 L 15 126/71 97 Room Air 09/29/24 22:59 36.8 C 55 L 15 124/74 94 Room Air PG Care Time/CCT Total # of Minutes Spent Total Time Spent with Patient: Total time spent is greater than 50% in coordination of care (as documented) at patient's floor/unit and/or counseling patient: Coding Level of Care Code 54117 SUB INP/OBS CARE 2/35MIN Diagnoses Calculus of right ureter N20.1 Renal colic N23
[2024-09-30] MEDS: ATENOLOL 25 MG TABLET PO SCH (10:50)
== END 2024-09-30 11:27 | disposition home or self-care (01) | DRG 661 ==
LOC: SUATTDRO → ED 11:17 → OR 13:54 → 3N 13:55 → INTOOBSV 13:55 → SUATTDRO 13:55

== ENCOUNTER 2024-10-28 10:27 | Observation (INO) ==
--- NOTE | 2024-10-28 10:50 | Emergency Department Note ---
Impression & Plan Renal colic, Hydronephrosis of right kidney, Calculus of right ureter, NORA (acute kidney injury) ED Provider Note NAME: VIOLETA MOREAU AGE: 59 SEX: M : 1965 ARRIVES VIA: Walk-In INFORMANT: Patient ED PROVIDER(S): Yassine Rodríguez DO CHIEF COMPLAINT: Right abdominal pain HPI: Patient is a 59-year-old male who presents to the ER with a past medical history of renal colic who presents to the ER for right flank pain. He notes this all started 2 weeks ago and he had a stent placed. 1 week ago he had a lithotripsy. Stent was removed 3 days ago and since then pain has been constant in that right lower quadrant. Denies any headache or change in vision. No chest pain or shortness of breath. No diarrhea but admits to nausea and vomiting. No dysuria, urgency, or frequency. No other exacerbating or remitting factors. ADDITIONAL HISTORY OBTAINED: provides additional history that he took a narcotic pill around 3 AM this morning and that did not help Chronic Medical/Social Conditions Affecting Care: Per HPI PAST MEDICAL HISTORY:See Below PAST SURGICAL HISTORY:See Below FAMILY HISTORY:See Below SOCIAL HISTORY:See Below HOME MEDICATIONS:See Below ALLERGIES:See Below VITALS:See Below PHYSICAL EXAMINATION: GENERAL: Sitting up in bed, alert, well appearing, well nourished, no distress, non-toxic EYE EXAM: normal conjunctiva. OROPHARYNX: mucous membranes are moist NECK: supple, no nuchal rigidity, no adenopathy, non-tender LUNGS: Clear to auscultation. Normal chest wall mechanics HEART: no murmurs, S1 normal and S2 normal ABDOMEN: abdomen soft, non-tender, normo-active bowel sounds, no masses, no rebound or guarding. BACK: Back is symmetrical on inspection and there is no deformity, no midline tenderness, no CVA tenderness. SKIN: no rashes and no bruising UPPER EXTREMITIES: upper extremities are grossly normal. LOWER EXTREMITIES: No pitting edema. NEURO EXAM: Normal sensorium, cranial nerves II-XII grossly intact, normal speech, no gross weakness of arms, no gross weakness of legs. MEDICAL DECISION MAKING: Patient is a 59-year-old male who presents ER for above-stated complaint. IV was established and blood work was obtained. Labs show mild leukocytosis of 13,000. No significant knee pain. BMP low with a creatinine of 2.4 up from baseline of what appears to be 1.5-1.6. LFTs and bilirubin is unremarkable. Lipase is normal. UA with small amount of ketones. CT abdomen pelvis was performed and showed a stone of about 8 mm in the right proximal ureter. With the NORA likely secondary to the persistent nausea vomiting patient was given IV fluids Zofran IV morphine and was initially given Toradol upon arrival prior to the results of the creatinine. Case was discussed with urology as well as the hospitalist for further evaluation management treatment. Consults/Care Managements Discussions: Per [facility] Triage Nursing notes reviewed. Limited review of prior medical records performed Vital Signs: reviewed and remarkable for HTN Differential diagnosis: Differential diagnoses includes but is not limited to gastritis, peptic ulcer disease, GERD, gallbladder disease, pancreatitis, small bowel obstruction, appendicitis, diverticulitis, hernia, urinary tract infection, torsion, perforation, trauma, infectious. ER treatment provided: See below Diagnostics interpreted by me include EKG and cardiac monitoring as listed below: -Cardiac Monitoring: An order was placed for continuous cardiac monitoring. The monitor shows a rate of 60 with sinus rhythm. -ECG: none -Laboratory studies:Interpreted by me as stated above in MDM and shown below. Imaging studies: Xrays: As interpreted by me:none CTs show: CT of the pelvis per my primary interpretation shows a proximal right ureteral stone CT Abdo pelvis per radiology as described above Procedures:none Critical Care: None Past Med/Surg History Problem List (Updated 10/28/24 @ 13:54 by Yassine Rodríguez DO) NORA (acute kidney injury) (Acute) Hydronephrosis of right kidney (Acute) Encounter for pre-operative examination Renal colic (Acute) Calculus of right ureter (Acute) Medical History (Updated 10/28/24 @ 13:54 by Yassine Rodríguez DO) HLD (hyperlipidemia) Per records Acute kidney injury hx, "due to kidney stone recently" (Pt admitted to [facility] 09/29/24-09/30/24) Hydronephrosis Gout hx, no meds for over 1 year Hypertension Surgical History Hx of colonoscopy Hx of LASIK S/P cystoscopy with ureteral stent placement (09/29/24) H/O lithotripsy Social History Smoking Status: Never smoker Second Hand Exposure: No; Do You Dip or Chew Tobacco: No; Hx Alcohol Use: Yes Alcohol type: beer Hx Substance Use: No Preferred Language: Rwandan Communication Ability: Effective Security Orderly Required: No Beliefs That Will Affect Care: None Current Living Situation: Spouse Feels Safe at Home: Yes Assistive Devices: None Allergies Allergies Allergy/AdvReac Type Severity Reaction Status Date / Time No Known Allergies Allergy Verified 10/28/24 12:47 Home Meds Home Medications Medication Instructions Recorded Confirmed atenolol 25 mg tablet 25 mg PO QPM 09/29/24 10/28/24 losartan 100 1 tab PO QAM 09/29/24 10/28/24 mg-hydrochlorothiazide 25 mg tablet amlodipine 5 mg tablet 5 mg PO DAILY 10/28/24 10/28/24 simvastatin 20 mg tablet 20 mg PO HS 10/28/24 10/28/24 Results & Data (ED) Vital Signs Vital Signs - 24 hr 10/28/24 10:28 10/28/24 10:28 10/28/24 10:36 Temperature 36.6 C Temperature Source Temporal Artery Scan Pulse Rate 65 54 L Pulse Rate [Apical] Pulse Rhythm Regular Pulse Rhythm [Apical] Pulse Strength [Apical] Respiratory Rate 18 18 19 Respiratory Effort / Characteristics Respiratory Depth Respiratory Pattern Blood Pressure 142/82 H Blood Pressure [Right Arm] Blood Pressure Mean 102 Blood Pressure Mean [Right Arm] Blood Pressure Position [Right Arm] Pulse Oximetry 99 95 Oxygen Delivery Method Room Air Sepsis Recent Fever Within 48 Hours No Sepsis New/Unexplained Change in Mental Status N/A Sepsis Action Taken by Nursing No Action Required 10/28/24 11:57 10/28/24 12:28 10/28/24 13:09 Temperature Temperature Source Pulse Rate 62 Pulse Rate [Apical] 60 57 L Pulse Rhythm Pulse Rhythm [Apical] Regular Pulse Strength [Apical] Normal Respiratory Rate 12 14 Respiratory Effort / Characteristics Non-Labored Spontaneous Respiratory Depth Normal Respiratory Pattern Regular Blood Pressure Blood Pressure [Right Arm] 134/74 139/77 Blood Pressure Mean Blood Pressure Mean [Right Arm] 94 97 Blood Pressure Position [Right Arm] Sitting Pulse Oximetry 98 99 Oxygen Delivery Method Room Air Room Air Sepsis Recent Fever Within 48 Hours Sepsis New/Unexplained Change in Mental Status Sepsis Action Taken by Nursing 10/28/24 13:39 Temperature Temperature Source Pulse Rate Pulse Rate [Apical] 59 L Pulse Rhythm Pulse Rhythm [Apical] Pulse Strength [Apical] Respiratory Rate 20 Respiratory Effort / Characteristics Respiratory Depth Normal Respiratory Pattern Blood Pressure Blood Pressure [Right Arm] 139/77 Blood Pressure Mean Blood Pressure Mean [Right Arm] 97 Blood Pressure Position [Right Arm] Pulse Oximetry 96 Oxygen Delivery Method Room Air Sepsis Recent Fever Within 48 Hours Sepsis New/Unexplained Change in Mental Status Sepsis Action Taken by Nursing Laboratory Data 10/28/24 10:41 10/28/24 10:41 Lab Results 10/28/24 10/28/24 Range/Units 10:41 Unknown WBC 13.04 H (4.8-10.8) K/ul RBC 5.04 (4.70-6.10) M/uL Hgb 15.1 (14.0-18.0) g/dl Hct 43.6 (42.0-52.0) % MCV 86.5 (80.0-100.0) fL MCH 30.0 (25.0-34.0) pg MCHC 34.6 (32.0-36.0) g/dL RDW Std Deviation 40.9 (36.4-46.3) fL RDW Coeff of Damaso 13.0 (11.5-14.5) % Plt Count 215 (130-400) K/uL MPV 11.6 (9.4-12.4) fL Immature Gran % (Auto) 0.4 % Neut % (Auto) 83.4 % Lymph % (Auto) 9.2 % Kidder % (Auto) 6.4 % Eos % (Auto) 0.3 % Baso % (Auto) 0.3 % Neut # (Auto) 10.88 H (1.40-6.50) K/uL Lymph # (Auto) 1.20 (1.20-3.40) K/uL Kidder # (Auto) 0.83 H (0.11-0.59) K/uL Eos # (Auto) 0.04 (0.00-0.50) K/uL Baso # (Auto) 0.04 (0.00-0.20) K/uL Immature Gran # (Auto) 0.05 (0.01-0.20) K/uL Sodium 135 L (136-145) mmol/L Potassium 3.8 (3.5-5.1) mmol/L Chloride 100 (98-107) mmol/L Carbon Dioxide 26 (21-32) mmol/L Anion Gap 9 (3-11) BUN 30 H (6-23) mg/dl Creatinine 2.42 H (0.6-1.4) mg/dl Est Cr Clr Drug Dosing 39.2 ml/min eGFR 29.84 BUN/Creatinine Ratio 12.4 (10-20) Glucose 129 H (70-99(Fasting)) mg/dl Calcium 9.8 (8.6-10.3) mg/dl Total Bilirubin 0.7 (0.2-1.0) mg/dl AST 17 (13-39) U/L ALT 17 (7-52) U/L Alkaline Phosphatase 63 (34-104) U/L Total Protein 7.9 (6.0-8.3) gm/dl Albumin 4.3 (3.4-5.0) gm/dl Globulin 3.6 (2.5-4.0) gm/dl Albumin/Globulin Ratio 1.2 (0.9-2) Lipase 15 (11-82) U/L Urine Color Yellow Urine Appearance Clear (Clear) Urine pH 5.0 (4.5-7.5) Ur Specific Odonnell 1.017 (1.000-1.030) Urine Protein Negative (Negative) Urine Glucose (UA) Negative (Negative) Urine Ketones Trace H (Negative) Urine Blood Negative (Negative) Urine Nitrite Negative (Negative) Urine Bilirubin Negative (Negative) Urine Urobilinogen Negative (Negative) Ur Leukocyte Esterase Negative (Negative) Urine Comment Administered Medications Discontinued Medications Sodium Chloride (Nss) 1,000 mls @ 999 mls/hr IV .Q1H1M ONE Stop: 10/28/24 11:45 Last Infusion: 10/28/24 12:27 Dose: Infused Documented By: Admin: 10/28/24 10:58 Dose: 999 mls/hr Documented By: RYAN Ketorolac Tromethamine (Ketorolac 30 Mg/Ml Vial) 30 mg IV NOW ONE Stop: 10/28/24 10:46 Last Admin: 10/28/24 10:58 Dose: 30 mg Documented By: RYAN Morphine Sulfate (Morphine Sulfate 4 Mg/Ml 1 Ml Carp\\Vial) 4 mg IV NOW STA Stop: 10/28/24 12:13 Last Admin: 10/28/24 12:27 Dose: 4 mg Documented By: RYAN Ondansetron HCl (Ondansetron Inj 2 Mg/Ml 2 Ml Vial) 4 mg IV NOW STA Stop: 10/28/24 10:46 Last Admin: 10/28/24 10:58 Dose: 4 mg Documented By: RYAN Imaging Data Radiologist's Impression: Abdomen/Pelvis CT 10/28/24 10:45 CT OF THE ABDOMEN AND PELVIS WITHOUT CONTRAST CLINICAL HISTORY: Right flank pain. COMPARISON STUDY: CT of the abdomen and pelvis September 27, 2024. Abdominal radiographs October 22, 2024 TECHNIQUE: Axial images of the abdomen and pelvis were obtained without IV contrast. Images were reviewed in the axial, sagittal, and coronal planes. Automated exposure control was utilized for the study. A dose lowering technique was utilized adhering to the principles of ALARA. FINDINGS: A 9 mm x 5 mm proximal right ureteral calculus results in moderate right hydronephrosis. There is right perinephric stranding. There has been mild distal migration of this calculus since CT of September 27, 2024. The right ureteral stent has been removed since prior radiographs. Partially duplicated right collecting system is noted. No additional urinary calculi are identified. Evaluation of the remainder of the abdomen and pelvis is suboptimal on unenhanced exam. Elevation the right hemidiaphragm is unchanged. Spleen, adrenal glands and pancreas are unremarkable. There is colonic diverticulosis without evidence for acute diverticulitis. The appendix is normal. No evidence for a bowel obstruction. There is no lymphadenopathy. IMPRESSION: 1. 9 mm x 5 mm proximal right ureteral calculus which results in moderate hydronephrosis with perinephric stranding. Mild distal migration since prior CT. 2. No additional urinary calculi. No left hydronephrosis. 3. Colonic diverticulosis. ACT 112: Negative or not required by law. Electronically signed by: Jacob Ledesma M.D. 10/28/2024 11:43 AM Discharge Plan Visit Data Chief Complaint: Referred by Doctor Stated Complaint: KIDNEY STONES ED Provider: Yassine Rodríguez Discharge Problem: Renal colic, Hydronephrosis of right kidney, Calculus of right ureter, NORA (acute kidney injury) Condition: Fair Forms Stand Alone Forms: My [facility] Prescriptions Prescriptions: No Action atenolol 25 mg tablet 25 mg PO QPM losartan-hydrochlorothiazide 100-25 mg tablet 1 tab PO QAM amlodipine 5 mg tablet 5 mg PO DAILY simvastatin 20 mg tablet 20 mg PO HS Referrals Referrals: Tanya Becerril DO [Primary Care Provider] -
[2024-10-28 10:53] LABS: Appearance Urine Clear (Clear); Glucose Urine UA Negative (Negative)
[2024-10-28 10:56] LABS: Hematocrit (blood only) 43.6 % (42.0-52.0); Hemoglobin 15.1 g/dl (14.0-18.0); Immature Granulocytes # (auto) 0.05 K/uL (0.01-0.20); Immature Granulocytes % (auto) 0.4 %; Mean Corpuscular Hemoglobin 30.0 pg (25.0-34.0); Mean Corpuscular Volume 86.5 fL (80.0-100.0); Platelet Count 215 K/uL (130-400); RDW Standard Deviation 40.9 fL (36.4-46.3); Red Blood Count 5.04 M/uL (4.70-6.10); White Blood Count 13.04 K/ul (4.8-10.8)
[2024-10-28] MEDS: ONDANSETRON INJ 2 MG/ML 2 ML VIAL IV STA (10:58)
[2024-10-28] MEDS: KETOROLAC 30 MG/ML VIAL IV ONE (10:58)
[2024-10-28] MEDS: SODIUM CHLORIDE 0.9% 1,000 ML IV ONE (10:58)
[2024-10-28 11:21] LABS: Alanine Aminotransferase 17.0 U/L (7-52); Albumin Globulin Ratio 1.2 (0.9-2); Alkaline Phosphatase 63.0 U/L (34-104); Anion Gap 9.0 (3-11); Bilirubin,Total 0.7 mg/dl (0.2-1.0); Blood Urea Nitrogen 30.0 mg/dl (6-23); Calcium 9.8 mg/dl (8.6-10.3); Carbon Dioxide 26.0 mmol/L (21-32); Chloride 100.0 mmol/L (98-107); Creatinine Clr Calc Pharmacy 39.2 ml/min; Globulin 3.6 gm/dl (2.5-4.0); Glucose 129.0 mg/dl (70-99(Fasting)); Lipase 15.0 U/L (11-82); Potassium 3.8 mmol/L (3.5-5.1); Sodium 135.0 mmol/L (136-145); Total Protein 7.9 gm/dl (6.0-8.3)
--- NOTE | 2024-10-28 11:44 | CT Scan Report ---
CT OF THE ABDOMEN AND PELVIS WITHOUT CONTRAST CLINICAL HISTORY: Right flank pain. COMPARISON STUDY: CT of the abdomen and pelvis September 27, 2024. Abdominal radiographs October 22, 2024 TECHNIQUE: Axial images of the abdomen and pelvis were obtained without IV contrast. Images were revi ewed in the axial, sagittal, and coronal planes. Automated exposure control was utilized for the kathryn dy. A dose lowering technique was utilized adhering to the principles of ALARA. FINDINGS: A 9 mm x 5 mm proximal right ureteral calculus results in moderate right hydronephrosis. Th ere is right perinephric stranding. There has been mild distal migration of this calculus since CT of September 27, 2024. The right ureteral stent has been removed since prior radiographs. Partially duplicat ed right collecting system is noted. No additional urinary calculi are identified. Evaluation of the remainder of the abdomen and pelvis is suboptimal on unenhanced exam. Elevation the right hemidiaphra gm is unchanged. Spleen, adrenal glands and pancreas are unremarkable. There is colonic diverticulosi s without evidence for acute diverticulitis. The appendix is normal. No evidence for a bowel obstruct ion. There is no lymphadenopathy. IMPRESSION: 1. 9 mm x 5 mm proximal right ureteral calculus which results in moderate hydronephrosis with perinep hric stranding. Mild distal migration since prior CT. 2. No additional urinary calculi. No left hydronephrosis. 3. Colonic diverticulosis. ACT 112: Negative or not required by law. Electronically signed by: Jacob Ledesma M.D. 10/28/2024 11:43 AM
[2024-10-28] MEDS: MoRPHine SULFATE 4 MG/ML 1 ML CARP\\VIAL IV STA (12:27)
--- NOTE | 2024-10-28 12:53 | History & Physical Report ---
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 He was worked up in the ED with unenhanced CT abdomen pelvis that demonstrated 9 mm x 5 mm right ureteral stone. There is an impression of mild distal migration of the stone since last CT scan and moderate hydronephrosis. Right nephrolithiasis and moderate hydronephrosis Supportive care Strain urine Strict I's and O's N.p.o. Aggressive IV fluids IV antibiotics Urology evaluation NORA on CKD Suspect prerenal and postrenal Avoid nephrotoxic meds including NSAIDs As above Hypertension Home medications Hyperlipidemia Home medications DVT prophylaxis SCDs and ambulation as tolerated. 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 He was worked up in the ED with unenhanced CT abdomen pelvis that demonstrated 9 mm x 5 mm right ureteral stone. There is an impression of mild distal migration of the stone since last CT scan and moderate hydronephrosis. Aside from the aforementioned symptoms, the patient denies any other symptoms or complaints. No fevers chills flank discomfort symptoms dyspnea or any other symptoms. Discussed with ED physician who tells me urology was notified and will see the patient when able. Reached out to urology EXCELLENCE MANAGER via secure chat to notify about consult as well Allergies Allergy/AdvReac Type Severity Reaction Status Date / Time No Known Allergies Allergy Verified 10/28/24 12:47 Home Medications Medication Instructions Recorded Confirmed Type atenolol 25 mg tablet 25 mg PO QPM 09/29/24 10/28/24 History losartan 100 1 tab PO QAM 09/29/24 10/28/24 History mg-hydrochlorothiazide 25 mg tablet simvastatin 5 mg tablet 0 mg PO QPM 09/29/24 10/28/24 History amlodipine 5 mg tablet 5 mg PO DAILY 10/28/24 10/28/24 History Past Med/Surg History Problem List (Updated 10/28/24 @ 13:01 by OCTAVIA Kelly) Hydronephrosis of right kidney Encounter for pre-operative examination Renal colic Calculus of right ureter (Acute) Medical History (Updated 10/28/24 @ 13:01 by OCTAVIA Kelly) HLD (hyperlipidemia) Per records Acute kidney injury hx, "due to kidney stone recently" (Pt admitted to [facility] 09/29/24-09/30/24) Hydronephrosis Gout hx, no meds for over 1 year Hypertension Surgical History Hx of colonoscopy Hx of LASIK S/P cystoscopy with ureteral stent placement (09/29/24) H/O lithotripsy Social History Smoking Status: Never smoker Second Hand Exposure: No; Do You Dip or Chew Tobacco: No; Hx Alcohol Use: Yes Alcohol type: beer Hx Substance Use: No Preferred Language: Yakut Communication Ability: Effective Alarm Operator Required: No Beliefs That Will Affect Care: None Current Living Situation: Spouse Feels Safe at Home: Yes Assistive Devices: None Review of Systems Constitutional: as per Subjective / HPI Genitourinary: + as per Subjective / HPI Physical Exam Constitutional: well developed and well nourished Neck: neck nontender Respiratory: normal respiratory effort; no respiratory distress and does not use accessory muscles Cardiovascular: Rate/Rhythm: regular rate Vessels: radial pulses present Extremities: no edema Gastrointestinal (Abdomen): Inspection/Auscultation: abdomen normal to inspection Percussion/Palpation: abdomen soft; abdomen nontender and no guarding Musculoskeletal: Head/Neck/Chest: normocephalic and head atraumatic Extremities: extremities normal to inspection Skin: no rashes and no lesions Trauma: no evidence of skin trauma Neurologic: awake; not obtunded Speech / Cognition: normal speech Motor/Sensory: no tremor Psychiatric: Orientation: alert and oriented x 3 Genitourinary: no CVA tenderness Lymphatic: no lymphadenopathy Results & Data Results & Data Vital Signs (Past 12 Hours) Vital Signs Temp Pulse Resp BP Pulse Ox O2 Del Method 10/28/24 11:57 62 10/28/24 10:36 54 L 19 95 Room Air 10/28/24 10:28 18 10/28/24 10:28 36.6 C 65 18 142/82 H 99 Laboratory Results Abnormal Labs 10/28/24 10/28/24 10:41 Unknown WBC 13.04 H Neut # (Auto) 10.88 H [place] # (Auto) 0.83 H Sodium 135 L BUN 30 H Creatinine 2.42 H Glucose 129 H Urine Ketones Trace H Diagnostic Findings Abdomen/Pelvis CT 10/28/24 10:45 CT OF THE ABDOMEN AND PELVIS WITHOUT CONTRAST CLINICAL HISTORY: Right flank pain. COMPARISON STUDY: CT of the abdomen and pelvis September 27, 2024. Abdominal radiographs October 22, 2024 TECHNIQUE: Axial images of the abdomen and pelvis were obtained without IV contrast. Images were reviewed in the axial, sagittal, and coronal planes. Automated exposure control was utilized for the study. A dose lowering technique was utilized adhering to the principles of ALARA. FINDINGS: A 9 mm x 5 mm proximal right ureteral calculus results in moderate right hydronephrosis. There is right perinephric stranding. There has been mild distal migration of this calculus since CT of September 27, 2024. The right ureteral stent has been removed since prior radiographs. Partially duplicated right collecting system is noted. No additional urinary calculi are identified. Evaluation of the remainder of the abdomen and pelvis is suboptimal on unenhanced exam. Elevation the right hemidiaphragm is unchanged. Spleen, adrenal glands and pancreas are unremarkable. There is colonic diverticulosis without evidence for acute diverticulitis. The appendix is normal. No evidence for a bowel obstruction. There is no lymphadenopathy. IMPRESSION: 1. 9 mm x 5 mm proximal right ureteral calculus which results in moderate hydronephrosis with perinephric stranding. Mild distal migration since prior CT. 2. No additional urinary calculi. No left hydronephrosis. 3. Colonic diverticulosis. ACT 112: Negative or not required by law. Electronically signed by: Jacob Ledesma M.D. 10/28/2024 11:43 AM PG Care Time/CCT Total # of Minutes Spent Total Time Spent with Patient: Total time spent is greater than 50% in coordination of care (as documented) at patient's floor/unit and/or counseling patient: Coding Level of Care Code 76672 INT INP/OBS CARE 2/55MIN Diagnoses Hydronephrosis of right kidney N13.30 Encounter for pre-operative examination Z01.818 Renal colic N23 Calculus of right ureter N20.1
--- NOTE | 2024-10-28 13:06 | Urology Consultation ---
Date of Consultation October 28, 2024 Assessment & Plan (1) Renal colic: (2) Calculus of right ureter: (3) Hydronephrosis of right kidney: (4) NORA (acute kidney injury): Plan 59-year-old male who has been followed by urology for right ureteral stone. Urology consulted for 9 mm right distal stone seen on CT Vital signs stable and patient is afebrile No cultures currently pending He is continue to have right-sided pain post stent although this somewhat improved with tramadol Labs today-creatinine 2.42, WBC 13.04, hemoglobin 15.1 Since patient has underwent multiple urological procedures Dr. Reynoso discussed proceeding back to the OR for cystoscopy with stone removal. Discussed surgical intervention with patient and of cystoscopy, laser destruction of stone and stent placement. Ureteral stents were discussed as well as postoperative issues and pain management. Risks and benefits of each were discussed. All questions were answered. After considering options, the patient would like to proceed with cystoscopy, right retrograde pyelogram, right uteroscopy, laser destruction of stone ureteral stent placement. Patient aware that Dr. Reynoso would not remove stone if there was an infection, stricture, or other complication during surgical intervention. In this case he cystoscopy with right stent would be completed. Risks and benefits to be reviewed with patient by Dr. Reynoso. OR notified. Will cover with IV Ancef preoperatively. Keep NPO. Urology will follow. Continue supportive care and pain management as needed. Case and plan of case was discussed with Dr. Reynoso. Please contact our service urgently if patient develops fever, hypotension, or other acute changes as this may necessitate urgent surgical intervention. Attending note: Patient independently assessed, examined, interviewed, and evaluated. Patient has undergone 2 times trial of intervention in order to try to manage significant kidney stone. Had stent that was removed as the stone did appear to have partially broken however the stone has now become obstructing once again. Presented to the ER with significant ill feeling severe pain had developed significant NORA. Has mild elevation of white count. Patient does have history of significant stone disease. Has a history of gout. Has significant hydronephrosis. Patient has undergone 2 attempts at attempting to clear the stone from the ureter. Most recently had stent removed earlier in the week. Agree with note as above. Patient's vitals and labs were all reviewed. Pertinent values in the HPI and plan section. Please see above for pertinent values and imaging was reviewed interpreted by myself. Agree with read. Patient on imaging appears to have significant obstruction possibly 2 stones in the mid/distal ureter with significant hydronephrosis. Possible 2 stone fragments from previous ESWL. Does appear to have significant hydronephrosis and perinephric stranding. Vitals were reviewed. Discussed findings extensively with patient and family. Reviewed with nurse practitioner as well as consulting physicians/team. Patient's complicated medical and surgical history was reviewed and summarized above. Patient's surgical, medical, social, and family history were all reviewed with pertinent values as above. Discussed patient's current diagnosis as well as concerns and issues. Reviewed different options moving forward. Discussed potential risks and benefits as well as possible options and concerns. Reviewed potential surgical options and interventions. Discussed potential issues and concerns related to intervention. Risk and benefits were discussed extensively with patient and any available family. Discussed potential risks related to anesthesia. Discussed risks of bleeding infection and injury. Discussed options for conservative measure and maximum expulsion medical therapy and symptom controlled. Discussed ESWL. Discussed Ureteroscopy with extraction and/or laser lithotripsy. Risks and benefits were discussed. Stone free rates were also discussed as well as possibility of multiple procedures. Ureteral stents were discussed as well as post-operative issues and pain management. All questions were answered. Risks and benefits discussed at length for procedure. These include bleeding, infection, injury to surrounding tissues or organs, and risks associated with anesthesia. Patient states understanding and agrees to proceed. Will sign consent and Proceed Plan for cystoscopy with possible right ureteroscopy laser lithotripsy and stone treatment History of Present Illness History of Present Illness 59-year-old male who presented to the ED for continued right-sided lower abdominal pain. history: [facility] ED on 09/27 for acute right flank pain and was diagnosed with an obstructing 7 mm right proximal ureteral stone. CTAP demonstrated moderate right sided hydroureteronephrosis secondary to an obstructing 7 mm right ureteral calculus. He was discharged with pain and nausea medication. Pt returned to [facility] ED this morning 09/29 for ongoing pain, nausea and vomiting. He was treated with pain and nausea medication and discharged for follow-up with urology. Was then seen in the urology clinic 09/29 continued to have significant discomfort and ongoing nausea/vomiting despite medications and was directed to the ED at that time. He underwent cystoscopy with right stent placement 09/29 He underwent EWSL 10/15/2024 His stent was removed 10/25/2024 CT 10/28/2024 shows a 9 mm proximal right ureteral calculus with moderate hydronephrosis, mild distal migration UA shows trace ketones, negative for nitrates, negative for leuks Labs reviewed creatinine 2.42, WBCs 13.4, hemoglobin 15.1, glucose 129 Since his stent removal he has had continued right-sided lower abdominal pain at its worst 10 out of 10. He did have nausea, vomiting yesterday. Currently denies dysuria, gross hematuria, fevers, chills, nausea, and vomiting. Says pain is improved post tramadol. Says his stream has been strong post stent removal. No other bothersome urinary symptoms. Allergies Allergy/AdvReac Type Severity Reaction Status Date / Time No Known Allergies Allergy Verified 10/28/24 12:47 Home Medications Medication Instructions Recorded Confirmed Type atenolol 25 mg tablet 25 mg PO QPM 09/29/24 10/28/24 History losartan 100 1 tab PO QAM 09/29/24 10/28/24 History mg-hydrochlorothiazide 25 mg tablet amlodipine 5 mg tablet 5 mg PO DAILY 10/28/24 10/28/24 History simvastatin 20 mg tablet 20 mg PO HS 10/28/24 10/28/24 History Patient History Medical History HLD (hyperlipidemia) Per records Acute kidney injury hx, "due to kidney stone recently" (Pt admitted to [facility] 09/29/24-09/30/24) Hydronephrosis Gout hx, no meds for over 1 year Hypertension Surgical History Hx of colonoscopy Hx of LASIK S/P cystoscopy with ureteral stent placement (09/29/24) H/O lithotripsy Social History Smoking Status: Never smoker Second Hand Exposure: No; Do You Dip or Chew Tobacco: No; Hx Alcohol Use: Yes Alcohol type: beer Hx Substance Use: No Preferred Language: Moldovan Communication Ability: Effective Credit Intern Required: No Beliefs That Will Affect Care: None Current Living Situation: Spouse Other Information That Helps Us Care for You: No Feels Safe at Home: Yes Safety Concerns: Feels Safe At This Time Assistive Devices: Glasses Review of Systems Review of Systems: All systems reviewed & are unremarkable except as noted in HPI & below Constitutional: as per Subjective / HPI Genitourinary: + as per Subjective / HPI Physical Exam Physical Exam: General: Alert and oriented x 3 in no acute distress. Patient is well nourished and well kept. HEENT: Normocephalic Atraumatic. Inspection normal. Cranial Nerves 2-12 Grossly intact. Nares are clear. Neck is supple. Normal inspection of face. Normal inspection of neck. Neurologic: No deficits on inspection. Baseline for motor function and sensory. Psychologic: Normal affect. Respiratory: Nonlabored. No use of accessory muscles. No tachypnea or dyspnea. Cardiovascular: No tachycardia Skin: [place] and Dry. No rashes or visible lesions. Extremities: Moving without issues. No motor deficits on inspection Lymphatics: No edema Abdomen: Soft Non-distended. No rebound or guarding. Constitutional: well developed and well nourished; no acute distress Respiratory: normal respiratory effort and able to speak in complete sentences Musculoskeletal: Extremities: extremities normal to inspection Psychiatric: Orientation: alert and oriented x 3 Results & Data Vital Signs (Past 12 Hours) Vital Signs Temp Pulse Pulse Resp BP BP Pulse Ox 10/28/24 12:28 60 12 134/74 98 10/28/24 11:57 62 10/28/24 10:36 54 L 19 95 10/28/24 10:28 18 10/28/24 10:28 36.6 C 65 18 142/82 H 99 O2 Del Method 10/28/24 12:28 Room Air 10/28/24 11:57 10/28/24 10:36 Room Air 10/28/24 10:28 10/28/24 10:28 PG Care Time/CCT Total # of Minutes Spent Total Time Spent with Patient: Total time spent is greater than 50% in coordination of care (as documented) at patient's floor/unit and/or counseling patient: Coding Level of Care Code 25641 IN/OBS CONSULT LVL 4,60M Diagnoses Renal colic N23 Calculus of right ureter N20.1 Hydronephrosis of right kidney N13.30 NORA (acute kidney injury) N17.9
[2024-10-28] MEDS ORDERED: ACETAMINOPHEN 325 MG TAB PO PRN (13:09)
[2024-10-28] MEDS ORDERED: cefTRIAXone SODIUM 1,000 MG/50 ML BAG IV SCH (13:15)
[2024-10-28] MEDS: LACTATED RINGER'S 1,000 ML IV SCH (13:50)
[2024-10-28] MEDS: ONDANSETRON INJ 2 MG/ML 2 ML VIAL IV PRN (14:14)
[2024-10-28] MEDS ORDERED: cefTRIAXone SODIUM 2,000 MG/50 ML BAG IV SCH (14:15)
--- NOTE | 2024-10-28 15:11 | Anesthesiology Consultation ---
Date of Service October 28, 2024 Assessment & Plan Chart Review Chart Review: Acceptable Risk for Surgery and Patient NOT seen in Pre Admission Testing Consults Requested none ASA [id number] Proposed Anesthesia Anesthesia Type: General History Surgery Operation Date: 10/28/24 16:20 Proposed Procedures p Cystoscopy Right Ureteroscopy Laser Destruction Right Stent Placement - Brian Reynoso, Height/Weight Height: 5 ft 10 in Weight: 103.8 kg Allergies Allergy/AdvReac Type Severity Reaction Status Date / Time No Known Allergies Allergy Verified 10/28/24 12:47 Medications Home Medications Medication Instructions Recorded Confirmed Last Taken atenolol 25 mg tablet 25 mg PO QPM 09/29/24 10/28/24 10/27/24 losartan 100 1 tab PO QAM 09/29/24 10/28/24 10/27/24 mg-hydrochlorothiazide 25 mg tablet amlodipine 5 mg tablet 5 mg PO DAILY 10/28/24 10/28/24 10/27/24 simvastatin 20 mg tablet 20 mg PO HS 10/28/24 10/28/24 10/27/24 Active Medications Generic Name Dose Route Start Last Admin Trade Name Freq PRN Reason Stop Dose Admin Lactated Ringer's 1,000 mls @ 150 mls/hr 10/28/24 13:15 10/28/24 13:50 Lr IV 10/31/24 13:14 150 mls/hr .Q6H40M MORENA Administration Ondansetron HCl 4 mg 10/28/24 13:09 10/28/24 14:14 Ondansetron Inj 2 Mg/Ml 2 Ml Vial IV 11/27/24 13:08 4 mg Q4H PRN Administration Nausea And Vomiting Past Medical History Medical History HLD (hyperlipidemia) Per records Acute kidney injury hx, "due to kidney stone recently" (Pt admitted to [facility] 09/29/24-09/30/24) Hydronephrosis Gout hx, no meds for over 1 year Hypertension obese Exercise / Class Metabolic Activity II 4-5 Yardwork/Stairs/Walk up hill Past Surgical History Surgical History Hx of colonoscopy Hx of LASIK S/P cystoscopy with ureteral stent placement (09/29/24) H/O lithotripsy Past Anesthesia History No Hx of Anesthesia Complications and No Family Hx of Anesthesia Complications History of PONV No Hx of PONV and No Hx of Motion Sickness Social History Smoking Status: Never smoker Do You Dip or Chew Tobacco: No Hx Alcohol Use: Yes Alcohol type: beer alcohol intake frequency: other Hx Substance Use: No substance use type: does not use Physical Exam Vital Signs Last Vital Signs Temp 36.6 C 10/28/24 10:28 Pulse 52 L 10/28/24 14:39 Resp 19 10/28/24 14:39 BP 133/74 10/28/24 14:39 Pulse Ox 99 10/28/24 14:39 O2 Del Method Room Air 10/28/24 14:00 Testing Laboratory Results 10/28/24 10:41 10/28/24 10:41 Urine Color Yellow 10/28/24 Unknown Urine Appearance Clear (Clear) 10/28/24 Unknown Urine pH 5.0 (4.5-7.5) 10/28/24 Unknown Ur Specific [place] 1.017 (1.000-1.030) 10/28/24 Unknown Urine Protein Negative (Negative) 10/28/24 Unknown Urine Glucose (UA) Negative (Negative) 10/28/24 Unknown Urine Ketones Trace (Negative) H 10/28/24 Unknown Urine Nitrite Negative (Negative) 10/28/24 Unknown Ur Leukocyte Esterase Negative (Negative) 10/28/24 Unknown Electrocardiogram Date: 10/13/24 Findings: + NSR @ (@ 63;LAE)
[2024-10-28] MEDS ORDERED: LIDOCAINE 2% 2 ML VIAL/AMP(20MG/ML) INFIL ONE (15:45)
[2024-10-28] MEDS ORDERED: PROPOFOL IV EMULSION 10 MG/ML 20 ML VIAL IV ONE (15:45)
[2024-10-28] MEDS ORDERED: MIDAZOLAM HCL 1 MG/ML 2ML VIAL ONE (15:46)
[2024-10-28] MEDS ORDERED: NALOXONE HCL 0.4 MG/1 ML VIAL/CARP IV PRN (16:29)
[2024-10-28] MEDS ORDERED: HYDROmorphone INJ 1 MG/ML SYRINGE IV PRN (16:29)
[2024-10-28] MEDS ORDERED: ONDANSETRON INJ 2 MG/ML 2 ML VIAL IV PRN (16:29)
[2024-10-28] MEDS ORDERED: PROMETHAZINE HCL 6.25 MG in SODIUM CHLORIDE 0.9% 50 ML IV PRN (16:29)
[2024-10-28] MEDS ORDERED: FLUMAZENIL 0.1 MG/1 ML 10 ML VIAL IV PRN (16:29)
[2024-10-28] MEDS ORDERED: ATROPINE SULFATE 0.1 MG/ML 10ML SYR IV PRN (16:29)
[2024-10-28] MEDS ORDERED: ceFAZolin 330 MG/ML 1 GM VIAL ONE (17:00)
[2024-10-28] MEDS: DIATRIZOATE MEGLUMINE 30% 100ML VIAL INSTIL ONE (17:30)
--- NOTE | 2024-10-28 17:33 | Operative Report ---
PG Post Operative Report Pre & Post Diagnosis Operation Date: 10/28/24 16:20 Pre-Op Diagnosis: (1) Renal colic: (2) Calculus of right ureter: (3) Hydronephrosis of right kidney: (4) NORA (acute kidney injury): Post-Op Diagnosis: (1) Renal colic (2) Calculus of right ureter (3) Hydronephrosis of right kidney (4) NORA (acute kidney injury) I identified the patient and participated in the time-out.: Yes Procedure Operation Date: 10/28/24 16:20 Actual Procedures p Cystoscopy Right Ureteroscopy, Retrograde Pyelograme , Ureteral Dilation, Laser Destruction of stone, Basket Extraction of Stones, Right Ureteral Stent Placement(Not Applicable) - Brian Reynoso DO Surgeon Brian Reynoso, SANDY, DO Biztalk Developer None Estimated Blood Loss 1 Findings Consistent with Post-Op Diagnosis Stone destroyed to dust and small fragments and larger fragments removed. Large stone appeared to be partially fractured but was obstructing at a area of stricture in the mid ureter Specimens Stone Fragmentsright ureter Drains 7 Japanese by 26 Anesthesia Type General Complications none Disposition Disposition: Recovery Room Indications Patient with bothersome stones. Risks and benefits discussed at length. Description of Procedure Patient was consented and brought back to the operating room. Patient was placed under anesthesia in the supine position and moved to the dorsal lithotomy position. Patient was prepped and draped in the regular sterile fashion. A time out was completed. A 30degree Cystoscope was placed into the bladder and the entire bladder was examined. The UO's were identified. The UO was cannulized with a catheter and a retrograde pyelogram was completed. A wire was then placed. The Rigid ureteroscope was taken into the ureter. The stone was identified. It appeared to have fractured into 2 to 3 pieces but was obstructed at a stricture in the ureter. The stone was slightly displaced and the stricture was dilated. The scope was then advanced. A laser fiber was selected and the stones were pulverized to dust and small fragments. Larger fragments were grasped and removed and sent for analysis. The entire area was once again examined. No residual large fragments or areas of concern were noted. The scope was slowly removed with the wire left in place. Contrast was placed through the scope for a pyelogram to assist in stent placement. The entire ureter was examined as the scope was slowly removed. No obstructions or other areas of concern were noted. With the wire in place, a 7 Fr Double J stent was placed. It was confirmed with fluoroscopy. With the stent in place, the bladder was emptied. The scope was removed. The patient was cleaned, aroused from anesthesia, and transferred to the pacu in stable condition having tolerated the procedure well with no complications. I was present and participated in all aspects of the procedure. The patient will be monitored in the PACU until transferred. Plan to continue to observe while hospitalized. Plan to follow-up in approximately 1 to 2 weeks for stent removal I attest to the content of the Intraoperative Record and any orders documented therein. Any exceptions are noted below.
--- NOTE | 2024-10-28 18:02 | Anesthesiology Progress Note ---
Date of Service October 28, 2024 Anesthesia Post Procedure Vital Signs Vital Signs: Temp Pulse Pulse Pulse Resp BP BP 10/28/24 18:00 63 14 140/80 10/28/24 17:50 62 12 133/78 10/28/24 17:40 36.5 C 70 16 130/76 10/28/24 16:10 37 C 61 20 10/28/24 15:39 36.7 C 53 L 16 10/28/24 15:13 52 L 13 133/74 10/28/24 14:39 52 L 19 10/28/24 14:00 59 L 15 10/28/24 13:39 59 L 20 10/28/24 13:10 57 L 14 10/28/24 13:09 57 L 14 10/28/24 12:28 60 12 10/28/24 11:57 62 10/28/24 10:36 54 L 19 10/28/24 10:28 18 10/28/24 10:28 36.6 C 65 18 142/82 H BP Pulse Ox O2 Del Method O2 Flow Rate 10/28/24 18:00 99 Oxymask 2 10/28/24 17:50 100 Oxymask 4 10/28/24 17:40 98 Oxymask 6 10/28/24 16:10 131/72 100 Room Air 10/28/24 15:39 129/72 98 Room Air 10/28/24 15:13 98 Room Air 10/28/24 14:39 133/74 99 10/28/24 14:00 133/72 95 Room Air 10/28/24 13:39 139/77 96 Room Air 10/28/24 13:10 96 Room Air 10/28/24 13:09 139/77 99 Room Air 10/28/24 12:28 134/74 98 Room Air 10/28/24 11:57 10/28/24 10:36 95 Room Air 10/28/24 10:28 10/28/24 10:28 99 Transfer of Care Handoff Completed per policy Notes Mental Status: alert / awake / arousable Patient Amnestic to Procedure: Yes Nausea / Vomiting: adequately controlled Pain: adequately controlled Airway Patency, RR, SpO2: stable & adequate BP & HR: stable & adequate Hydration State: stable & adequate Anesthetic Complications: no major complications apparent
[2024-10-28] MEDS: MoRPHine SULFATE 2 MG/ML CARP IV PRN (20:23)
[2024-10-28] MEDS: SIMVASTATIN 40 MG TAB PO SCH (23:12)
[2024-10-28 23:21] VITALS: O2SAT 96
[2024-10-28] MEDS: ATENOLOL 25 MG TABLET PO SCH (23:21)
[2024-10-29 03:21] VITALS: PULSE 68; TEMP 98.1
[2024-10-29 07:28] VITALS: BP 138/82; RESP 18
--- NOTE | 2024-10-29 08:31 | Urology Progress Note ---
Date of Service October 29, 2024 Assessment & Plan (1) NORA (acute kidney injury): (2) Hydronephrosis of right kidney: (3) Renal colic: (4) Calculus of right ureter: Plan 59-year-old male with a right ureteral stone and in pain who presented back to the ER 10/28/2024. POD #1 s/p cystoscopy and right uteroscopy, laser destruction of stone and right ureteral stent placement Tolerating the ureteral stent with minimal bother. No labs completed this morning No cultures currently pending-did receive Ancef prior to surgery-if medicine feels appropriate to discharge on antibiotics may do so. Voiding appropriately-did mention that he had better voiding on Flomax and wanted to go home on this medication especially due to stent. We also discussed mechanism of Flomax in helping with BPH. Would recommend discharge on Flomax. Order was added. Continue supportive care and other monitoring per primary team No plan for further urologic intervention during this admission. Okay to discharge from a urological standpoint Will arrange outpatient follow-up with our service for stent removal in 1 to 2 weeks. Urology will sign out Recontact our service for any urological questions, concerns. Admission and Anticipated Discharge Date Admission Date: October 28, 2024 Subjective Patient awake and resting comfortably in bed No acute distress Denies dysuria, fevers, chills, nausea, and vomiting. Passed some small clots overnight and possibly small fragments of stone No current pain Minor stent discomfort Has not had Flomax since admission and feels that he voids better on this medication Review of Systems Constitutional: as per Subjective / HPI Genitourinary: + as per Subjective / HPI Physical Exam Constitutional: well developed and well nourished; no acute distress Respiratory: normal respiratory effort and able to speak in complete sentences Musculoskeletal: Extremities: extremities normal to inspection Psychiatric: Orientation: alert and oriented x 3 Results & Data Vital Signs (Past 12 Hours) Vital Signs Temp Pulse Resp BP Pulse Ox O2 Del Method 10/29/24 07:26 36.7 C 68 18 138/82 96 Room Air 10/29/24 03:18 36.7 C 68 16 131/73 96 Room Air 10/28/24 22:20 36.9 C 64 16 138/76 96 Room Air 10/28/24 21:23 37.0 C 65 16 130/73 94 Room Air 10/28/24 20:40 36.7 C 60 16 126/72 95 Room Air PG Care Time/CCT Total # of Minutes Spent Total Time Spent with Patient: Total time spent is greater than 50% in coordination of care (as documented) at patient's floor/unit and/or counseling patient: Coding Level of Care Code 69264 SUB INP/OBS CARE 2/35MIN Diagnoses NORA (acute kidney injury) N17.9 Hydronephrosis of right kidney N13.30 Renal colic N23 Calculus of right ureter N20.1
[2024-10-29 08:49] LABS: Hematocrit (blood only) 38.9 % (42.0-52.0); Hemoglobin 13.0 g/dl (14.0-18.0); Mean Corpuscular Hemoglobin 29.2 pg (25.0-34.0); Mean Corpuscular Volume 87.4 fL (80.0-100.0); Platelet Count 180 K/uL (130-400); RDW Standard Deviation 42.3 fL (36.4-46.3); Red Blood Count 4.45 M/uL (4.70-6.10); White Blood Count 10.46 K/ul (4.8-10.8)
--- NOTE | 2024-10-29 08:58 | Fluoroscopy Report ---
FL retrograde includes kub CLINICAL HISTORY: RT SIDE RETROGRADE COMPARISON STUDY: None FLUOROSCOPY TIME: 13 seconds FLUOROSCOPY IMAGES: 3 EXPOSURE DOSE: 6 mGy FINDINGS: Fluoroscopy was provided for urologic procedure. IMPRESSION: Intraoperative fluoroscopy. ACT 112: Negative or not required by law. Electronically signed by: Juancho Salazar M.D. 10/29/2024 8:57 AM
[2024-10-29 09:07] LABS: Anion Gap 8.0 (3-11); Blood Urea Nitrogen 23.0 mg/dl (6-23); Calcium 8.7 mg/dl (8.6-10.3); Carbon Dioxide 25.0 mmol/L (21-32); Chloride 104.0 mmol/L (98-107); Creatinine Clr Calc Pharmacy 54.5 ml/min; Glucose 172.0 mg/dl (70-99(Fasting)); Potassium 3.7 mmol/L (3.5-5.1); Sodium 137.0 mmol/L (136-145)
--- NOTE | 2024-10-29 09:41 | Discharge Summary ---
Discharge Summary Date of Service October 29, 2024 Principal Dx & Hospital Course #1 = Principal Diagnosis (1) Hydronephrosis of right kidney: (2) Encounter for pre-operative examination: (3) Renal colic: (4) Calculus of right ureter: Plan Subjective: Doing very well. In good spirits minimal clots and hematuria. Seems to be improving. No abdominal pain flank discomfort nausea fevers chills symptoms or any other symptoms.Really would like to go home. We discussed hydrating avoiding NSAIDs, Strict return precautions, and importance of close follow-up and monitoring renal function. Assessment and plan: 59 male hypertension hyperlipidemia gout renal sufficiency reportedly developed in relation to recent nephrolithiasis, status post stent for nephrolithiasis approximately 2 weeks [employer] with subsequent Lithotripsy approximate 1 week [employer] and then stent removal ~3 days [employer] who presents with severe right-sided flank and right lower quadrant pain nausea and vomiting. He was worked up in the ED with unenhanced CT abdomen pelvis that demonstrated 9 mm x 5 mm right ureteral stone. There is an impression of mild distal migration of the stone since last CT scan and moderate hydronephrosis. Right nephrolithiasis and moderate hydronephrosis Supportive care Strain urine Strict I's and O's Aggressive IV fluids Status post laser destruction of stone, basket removal and stent placement On 10/28. Ureteral dilatation was performed for stricture.Urology cleared for discharge outpatient follow-up Flomax added NORA on CKD Suspect prerenal and postrenal Improved Avoid nephrotoxic meds including NSAIDs As above Hypertension Home medications Hyperlipidemia Home medications DVT prophylaxis SCDs and ambulation as tolerated Full code Disposition Home with Admission HPI Per Admitting Provider 59 male hypertension hyperlipidemia gout renal sufficiency reportedly developed in relation to recent nephrolithiasis, status post stent for nephrolithiasis approximately 2 weeks [employer] with subsequent Lithotripsy approximate 1 week [employer] and then stent removal ~3 days [employer] who presents with severe right-sided flank and right lower quadrant pain nausea and vomiting. He was worked up in the ED with unenhanced CT abdomen pelvis that demonstrated 9 mm x 5 mm right ureteral stone. There is an impression of mild distal migration of the stone since last CT scan and moderate hydronephrosis. Aside from the aforementioned symptoms, the patient denies any other symptoms or complaints. No fevers chills flank discomfort symptoms dyspnea or any other symptoms. Discussed with ED physician who tells me urology was notified and will see the patient when able. Reached out to urology RESIDENTIAL COUNSELOR via secure chat to notify about consult as well Discharge Exam Constitutional well developed and well nourished Neck neck nontender Respiratory normal respiratory effort; no respiratory distress and does not use accessory muscles Cardiovascular Rate/Rhythm: regular rate Vessels: radial pulses present Extremities: no edema Gastrointestinal (Abdomen) Inspection/Auscultation: abdomen normal to inspection Percussion/Palpation: abdomen soft; abdomen nontender and no guarding Musculoskeletal Head/Neck/Chest: normocephalic and head atraumatic Extremities: extremities normal to inspection Skin no rashes and no lesions Trauma: no evidence of skin trauma Neurologic awake; not obtunded Speech / Cognition: normal speech Motor/Sensory: no tremor Psychiatric Orientation: alert and oriented x 3 Genitourinary no CVA tenderness Lymphatic no lymphadenopathy Discharge Plan Discharge Items Patient Disposition: Home - Self-Care Reason For Visit: KIDNEY STONES Discharge Diagnosis: stone Condition on Discharge: Fair Activity: Resume your previous activity Non-emergency contact: Primary Care Provider Call non-emergency contact if: you have any medication questions and your symptoms worsen Follow-up/Referrals: Tanya Becerril DO [Primary Care Provider] - Diet: Regular Addtl Attending Provider Instructions: Avoid NSAIDs. Stay very well-hydrated. Optimize diet. Follow-up with PCP and urology within 1 week. As we discussed have blood work to recheck monitor kidney function over the next few days Pending Studies at Discharge: No Stand-Alone Forms: My [facility] Cask, Smoking Cessation Medications and DC Order Prescriptions: New tamsulosin 0.4 mg Capsule 0.4 mg PO HS Qty: 30 0RF Continued atenolol 25 mg tablet 25 mg PO QPM losartan-hydrochlorothiazide 100-25 mg tablet 1 tab PO QAM amlodipine 5 mg tablet 5 mg PO DAILY simvastatin 20 mg tablet 20 mg PO HS Discharge Orders: Discharge Order (Routine); Ordered 10/29/24 Ordered By: Luc Uribe Admission Data Admit Date/Time: 10/28/24 13:09 Attending Provider: Luc Uribe Admit Provider: Luc Uribe Primary Care Provider: Tanya Becerril Other Providers: Luc Uribe; Rad Cheung; Raquel Burk; Brian Reynoso; Rupinder Coleman; Mekhi Moon; Cassi Rivers; Lex Ojeda; Robyn Diego; Dieudonne Medina; Dani Boothe Hospital Stay Data Consultations 10/28/24 12:39 ED Decision to Admit Stat 10/28/24 13:15 Consult Urology Stat Procedures Performed Operation Date: 10/28/24 16:20 Actual Procedures p Cystoscopy Right Ureteroscopy, Retrograde Pyelograme with Ureteral Dilation, Laser Destruction and Basket Extraction of Stones, Right Ureteral Stent Placement(Not Applicable) - Brian Reynoso, Diagnostic Imagining Performed 10/28/24 10:45 CT stones [CT abd pelvis wo con] Stat 10/28/24 14:30 FL retrograde includes kub Routine Pending Results Patient Have Any Pending Studies at Discharge: No Discharge Instructions Given to Patient (Per Discharging Provider) Avoid NSAIDs. Stay very well-hydrated. Optimize diet. Follow-up with PCP and urology within 1 week. As we discussed have blood work to recheck monitor kidney function over the next few days Total Time Total Time Spent Total Time Spent (In Minutes): 35 Coding Level of Care Code 02469 IN/OBS DISCH 30 MIN/LESS Diagnoses Hydronephrosis of right kidney N13.30 Encounter for pre-operative examination Z01.818 Renal colic N23 Calculus of right ureter N20.1
[2024-10-29] MEDS ORDERED: TAMSULOSIN HCL 0.4 MG CAP PO SCH (21:00)
== END 2024-10-29 11:01 | disposition home or self-care (01) ==
LOC: SUATTDRO → ED 10:27 → 3W 10:27